=== PATIENT | female | born 1995 | race African-American/Black ===

== ENCOUNTER 2018-04-01 14:29 | Emergency (ER) | payer SELFPAY | END 2018-04-01 15:26 | disposition home or self-care (01) | LOC: ERS 14:29 | DX: J06.9 Acute upper respiratory infection, unspecified (principal); G43.909 Migraine, unspecified, not intractable, without status migrainosus | CPT/HCPCS: 87804; 99283 ==

== ENCOUNTER 2019-11-14 08:33 | Outpatient (CLI) | payer BC, MEDICAID ==
--- NOTE | 2019-11-14 09:28 | ULT ---
OB ULTRASOUND: Date: 11/14/2019 INDICATION: Assess anatomy. FINDINGS: A single, viable intrauterine is noted. Gestational age by ultrasound is 19 weeks and 1 day . Biometry measurements are symmetric. BPD: 19 weeks 2 days HC: 19 weeks 5 days AC: 18 weeks 5 days FL: 18 weeks 6 days EFW: 258 gm, 19 weeks and 4 days. Placenta: Posterior fundal. Presentation: Vertex. heart rate: 147 beats/minute. Amniotic fluid: Within normal range. KARLEE is not calculated. Cervical length: 3.4 cm. Anatomy: Intracranial contents, 4 chamber heart, stomach, kidneys, cord insertion, bladder, spine, li ps, nose, extremities, and 3 vessel cord were all imaged. No anatomy abnormality identified. IMPRESSION: 19 weeks and 1 day gestational age by ultrasound. No abnormality identified. POS: AGW
== END 2019-11-14 08:34 | disposition home or self-care (01) ==
LOC: BICULT 08:33
PROVIDERS: ATTEND Family Medicine
DX: Z34.82 Encounter for supervision of other normal pregnancy, second trimester (principal); Z3A.19 19 weeks gestation of pregnancy
CPT/HCPCS: 76805

== ENCOUNTER 2021-05-25 14:35 | Emergency (ER) | payer BC, MEDICAID ==
[2021-05-25 16:03] LABS: #Basophils 0.1 thou/uL (0.0-0.2); #Lymphocytes 2.4 thou/uL (1.20-3.40); #Monocytes 0.6 thou/uL (0.11-0.59); #Neutrophils 2.9 thou/uL (1.40-6.50); %Basophils 1.3 % (0.0-1.0); %Eosinophils 0.4 % (0.0-10.0); %Lymphocytes 40.1 % (21.0-51.0); %Monocytes 10.1 % (0.0-10.0); %Neutrophils 48.1 % (42.0-75.0); Hemoglobin 13.7 g/dL (12.0-16.0); Mean Corpuscular HGB CONC 34.3 g/dL (32.0-36.0); Mean Corpuscular Hemoglobin 32.4 pg (27.0-31.0); Mean Corpuscular Volume 94.3 fL (78.0-98.0); Mean Platelet Volume 9.3 fL (7.4-10.4); Platelet Count 186 thou/uL (130-400); RBC Distribution Width 12.3 % (11.5-14.5); Red Blood Cell (RBC) Count 4.23 mill/uL (4.20-5.40); White Blood Cell (WBC) Count 6.1 thou/uL (4.8-10.8)
[2021-05-25 16:08] LABS: BHCG - Serum POSITIVE (NEGATIVE); Pregs Control Background? CLEAR/WHITE (CLR/WHITE); Pregs Control Bar Appear? YES (CONTROL BAR)
[2021-05-25] MEDS ORDERED: Ondansetron ODT 4 MG TAB ONE (16:17)
[2021-05-25 16:29] LABS: ALT (SGPT) 10 U/L (8-55); AST (SGOT) 10 U/L (5-34); Albumin 4.2 g/dL (3.5-5.0); Alkaline Phosphatase 79 U/L (40-110); Anion Gap 11 mmol/L (10-20); BUN (Urea Nitrogen) 5 mg/dL (7.0-18.7); Bilirubin, Total 0.5 mg/dL (0.2-1.2); Calc. Creatinine Clearance 0 mL/min (70-130); Calcium 9.8 mg/dL (7.8-10.44); Carbon Dioxide 26 mmol/L (22-29); Chloride 100 mmol/L (98-107); Glucose 87 mg/dL (70-105); Potassium 3.3 mmol/L (3.5-5.1); Protein, Total 8.2 g/dL (6.0-8.3); Sodium 134 mmol/L (136-145)
== END 2021-05-25 16:55 | disposition home or self-care (01) ==
LOC: ERS 14:35
DX: O99.891 Other specified diseases and conditions complicating pregnancy (principal); R11.0 Nausea; O99.351 Diseases of the nervous system complicating pregnancy, first trimester; G43.909 Migraine, unspecified, not intractable, without status migrainosus
CPT/HCPCS: 36415; 71045; 80053; 84703; 85025; 93005; Q0162

== ENCOUNTER 2023-04-12 13:47 | Emergency (ER) | payer OTHER, BC ==
[2023-04-12] MEDS ORDERED: Ketorolac Tromethamine 30 MG/ML VIAL ONE (14:58)
== END 2023-04-12 15:25 | disposition home or self-care (01) ==
LOC: ERS 13:47
DX: S09.90XA Unspecified injury of head, initial encounter (principal); M54.2 Cervicalgia; V89.2XXA Person injured in unspecified motor-vehicle accident, traffic, initial encounter
CPT/HCPCS: 70450; 72125; 96372; J1885

== ENCOUNTER 2023-08-20 14:58 | Outpatient (CLI) | payer BC | END 2023-08-20 14:59 | disposition home or self-care (01) | LOC: SCSRAD 14:58 | PROVIDERS: ATTEND Nurse Practitioner Family | DX: S99.921A Unspecified injury of right foot, initial encounter (principal) ==